=== PATIENT | male | born 1940 | race Caucasian/White ===

== ENCOUNTER → 2020-01-13 | Outpatient (CLI) | payer MEDICARE, OTHER | END | disposition home or self-care (01) | LOC: RESCLI 13:52 | DX: J45.30 Mild persistent asthma, uncomplicated (principal); I10 Essential (primary) hypertension; K92.2 Gastrointestinal hemorrhage, unspecified ==

== ENCOUNTER → 2020-04-20 | Outpatient (CLI) | payer MEDICARE, OTHER | END | disposition home or self-care (01) | LOC: RESCLI 01:00 | PROVIDERS: ATTEND Internal Medicine | DX: I10 Essential (primary) hypertension (principal); J45.30 Mild persistent asthma, uncomplicated; J30.2 Other seasonal allergic rhinitis; R53.83 Other fatigue; I25.2 Old myocardial infarction; Z79.899 Other long term (current) drug therapy; Z98.890 Other specified postprocedural states ==

== ENCOUNTER → 2020-12-21 | Outpatient (CLI) | payer MEDICARE, OTHER | END | disposition home or self-care (01) | LOC: RESCLI 00:44 | PROVIDERS: ATTEND Internal Medicine | DX: J45.30 Mild persistent asthma, uncomplicated (principal); K21.9 Gastro-esophageal reflux disease without esophagitis; I10 Essential (primary) hypertension; M85.80 Other specified disorders of bone density and structure, unspecified site; Z79.899 Other long term (current) drug therapy ==

== ENCOUNTER → 2021-03-23 | Outpatient (CLI) | payer MEDICARE, OTHER | END | disposition home or self-care (01) | LOC: RESCLI 00:23 | PROVIDERS: ATTEND Emergency Medicine | DX: J45.30 Mild persistent asthma, uncomplicated (principal); K21.9 Gastro-esophageal reflux disease without esophagitis; I10 Essential (primary) hypertension; Z79.899 Other long term (current) drug therapy; Z98.890 Other specified postprocedural states ==